=== PATIENT | male | born 1985 | race African-American/Black ===

== ENCOUNTER 2017-01-29 19:27 | Emergency (ER) | payer SELFPAY ==
[~2017-01-29] VITALS: Ht 198.1 cm; Wt 136.1 kg
[2017-01-29 19:29] VITALS: BP 174/100
[2017-01-29] MEDS ORDERED: AMOX500T PO (20:38)
[2017-01-29] MEDS ORDERED: FLUT9.9S NS (20:38)
--- NOTE | 2017-01-29 20:38 | PHYS DOC ---
Past Medical History Past Medical History: Hypertension Additional Past Medical Histor: uncontrolled for 7 months Past Surgical History: No Surgical History Smoking: Less than 1pk/day Alcohol Use: Occasionally Drug Use: Marijuana Adult General Chief Complaint Chief Complaint: EARACHE/EAR PAIN HPI HPI Patient is a 31 year old male who presents with right ear pain for one week. He is out of sore throat for 2 weeks with productive cough, mild shortness of breath, nasal congestion, and subjective fever. He had been treating the sore throat with [id number] medications until the ear pain began. He does not have a PCP. Review of Systems Review of Systems Constitutional: Reports subjective fever. Eyes: Denies change in visual acuity, redness, or eye pain. [] HENT: Reports right ear pain, sore throat, nasal congestion. Respiratory: Reports productive cough and mild shortness of breath. Cardiovascular: Denies chest pain, palpitations or edema. [] GI: Denies abdominal pain, nausea, vomiting, bloody stools or diarrhea. [] : Denies dysuria, hematuria or urinary frequency. [] Musculoskeletal: Denies back pain or joint pain. [] Integument: Denies rash or skin lesions. [] Neurologic: Denies headache, focal weakness or sensory changes. [] Endocrine: Denies polyuria or polydipsia. [] Psych: Denies anxiety or depression. [] All systems reviewed and negative unless otherwise stated in the HPI. Allergies Allergies Allergies Coded Allergies Type Severity Reaction Last Updated Verified No Known Drug Allergies 07/18/14 No Physical Exam Physical Exam Constitutional: Well developed, well nourished, no acute distress, non-toxic appearance. [] HENT: Normocephalic, atraumatic, bilateral external ears normal, oropharynx moist, no oral exudates, nose normal. Left TM without erythema or bulging. Right TM is erythematous and bulging without rupture of the TM. The ear canal does not have erythema or edema. There is mild posterior pharyngeal erythema with bilateral tonsillar edema and exudates. There is no peritonsillar abscess or uvular deviation. Bilateral nasal turbinates are significant is swollen and erythematous with purulent drainage. Eyes: PERRLA, EOMI, conjunctiva normal, no discharge. [] Neck: Normal range of motion, no tenderness, supple, no stridor. [] Cardiovascular: Heart rate regular rhythm, no murmur [] Lungs & Thorax: Bilateral breath sounds clear to auscultation without wheezes, rales, or rhonchi. Skin: Warm, dry, no erythema, no rash. [] Neurologic: Alert and oriented X 3, normal motor function, normal sensory function, no focal deficits noted. [] Psychologic: Affect normal, judgement normal, mood normal. [] Current Patient Data Vital Signs Vital Signs Date Time Temp Pulse Resp B/P Pulse Ox O2 Delivery O2 Flow Rate FiO2 01/29/17 19:29 98.5 80 18 98 Room Air 98.5 EKG EKG [] Radiology/Procedures Radiology/Procedures [] Course & Med Decision Making Course & Med Decision Making Pertinent Labs and Imaging studies reviewed. (See chart for details) [] Dragon Disclaimer Dragon Disclaimer This electronic medical record was generated, in whole or in part, using a voice recognition dictation system. Departure Departure Impression: Primary Impression: Otitis media Disposition: HOME, SELF-CARE Condition: STABLE Referrals: NO PCP (PCP) Patient Instructions: Otitis Media, Adult, [id number] Additional Instructions: Please complete all the prescribed antibiotics, even if you are feeling better. Please use the prescribed nasal spray on a daily basis to help decrease nasal drainage and congestion. This will also help to relieve pressure in your ear. Please follow-up with a primary care provider within the next week. Return to the emergency department if you have any new or concerning symptoms. Scripts Amoxicillin 500 Mg Tablet2 Tab PO BID #40 TAB Prov:JOSEY DISLA 01/29/17 Fluticasone Propionate (Flonase Allergy Relief)9.9 Ml [place].susp2 Sprays NS DAILY #1 BOTTLE Prov:JOSEY DISLA 01/29/17 Problem Qualifiers Primary Impression: Otitis media Otitis media type: suppurative Laterality: right Chronicity: acute Recurrence: not specified as recurrent Spontaneous tympanic membrane rupture: without spontaneous rupture Qualified Code: H66.001 - Acute suppurative otitis media without spontaneous rupture of ear drum, right ear JOSEY DISLA Jan 29, 2017 20:38
== END 2017-01-29 20:42 | disposition home or self-care (01) ==
LOC: ER 19:27
DX: H66.001 Acute suppurative otitis media without spontaneous rupture of ear drum, right ear (principal); I10 Essential (primary) hypertension; F12.10 Cannabis abuse, uncomplicated; F17.200 Nicotine dependence, unspecified, uncomplicated
CPT/HCPCS: 99283

== ENCOUNTER 2017-02-06 19:25 | Emergency (ER) | payer SELFPAY ==
[~2017-02-06 19:25] MED LIST: AMOX500T PO; FLUT9.9S NS
[2017-02-06 19:27] VITALS: BP 166/102
[2017-02-06] MEDS ORDERED: ATEN25TA PO (20:24)
[2017-02-06] MEDS ORDERED: MECL25TA3 PO (20:24)
--- NOTE | 2017-02-06 20:25 | PHYS DOC ---
Past Medical History Past Medical History: Hypertension Additional Past Medical Histor: uncontrolled for 7 months Past Surgical History: No Surgical History Smoking: Less than 1pk/day Alcohol Use: Occasionally Drug Use: Marijuana Adult General Chief Complaint Chief Complaint: EARACHE/EAR PAIN [facility] HPI Patient is a 31 year old male who presents with right ear congestion for one week. The patient was seen here on 01/29/17 and diagnosed with an ear infection. He was prescribed amoxicillin. He reports that he took the amoxicillin for approximately 3 days. He stopped taking the amoxicillin after an episode of vertigo. He got out of bed and felt very dizzy, described as a spinning sensation. He did have some drainage from the right ear as well as pain. He no longer has drainage or pain but feels like his ears are clogged. He continues to have vertigo when he lays down at night. He denies any fever, nasal congestion, sore throat, cough, nausea, or vomiting. He does not have a PCP. Upon arrival to the emergency department, his blood pressure is elevated. He states that he has been prescribed atenolol 50 mg daily in the past. He does not have a primary care provider to prescribe him this medication. Review of Systems Review of Systems Constitutional: Denies fever or chills. [] Eyes: Denies change in visual acuity, redness, or eye pain. [] HENT: Denies nasal congestion or sore throat. Reports right ear congestion and tinnitus. Respiratory: Denies cough or shortness of breath. [] Cardiovascular: Denies chest pain, palpitations or edema. [] GI: Denies abdominal pain, nausea, vomiting, bloody stools or diarrhea. [] : Denies dysuria, hematuria or urinary frequency. [] Musculoskeletal: Denies back pain or joint pain. [] Integument: Denies rash or skin lesions. [] Neurologic: Denies headache, focal weakness or sensory changes. Reports vertigo. Endocrine: Denies polyuria or polydipsia. [] Psych: Denies anxiety or depression. [] All systems reviewed and negative unless otherwise stated in the HPI. Allergies Allergies Allergies Coded Allergies Type Severity Reaction Last Updated Verified No Known Drug Allergies 07/18/14 No Physical Exam Physical Exam Constitutional: Well developed, well nourished, no acute distress, non-toxic appearance. [] HENT: Normocephalic, atraumatic, bilateral external ears normal, oropharynx moist, no oral exudates, nose normal. Bilateral TMs without erythema or bulging. There is fluid behind the right eardrum. There is no perforation of the eardrum, drainage in the ear canal, erythema or edema of the ear canal. There is no mastoid tenderness. There is no posterior pharyngeal erythema or tonsillar edema. Bilateral nasal turbinates are swollen and erythematous. Eyes: PERRLA, EOMI, conjunctiva normal, no discharge. [] Neck: Normal range of motion, no tenderness, supple, no stridor. [] Cardiovascular: Heart rate regular rhythm, no murmur [] Lungs & Thorax: Bilateral breath sounds clear to auscultation without wheezes, rales, or rhonchi. Skin: Warm, dry, no erythema, no rash. [] Neurologic: Alert and oriented X 3, normal motor function, normal sensory function, no focal deficits noted. [] Psychologic: Affect normal, judgement normal, mood normal. [] Current Patient Data Vital Signs Vital Signs Date Time Temp Pulse Resp B/P Pulse Ox O2 Delivery O2 Flow Rate FiO2 02/06/17 19:27 98.7 76 18 98 Room Air 98.7 EKG EKG [] Radiology/Procedures Radiology/Procedures [] Course & Med Decision Making Course & Med Decision Making Pertinent Labs and Imaging studies reviewed. (See chart for details) Patient presents with vertigo after recent otitis media, incompletely treated. On exam, there is no evidence of infection, however there is fluid behind the right TM without perforation. There are no neurologic deficits. The patient does not have any chest pain or shortness of breath. His blood pressure is uncontrolled, as he does not have a PCP to prescribe his blood pressure medication. He stopped taking the antibiotic prescribed for his ear infection. He states that he is still taking the nasal spray as prescribed on a daily basis. Patient is discharged home with prescription for Antivert and atenolol. He is instructed to continue to use the nasal spray as well. He is given contact information for primary care providers to establish care. Return precautions were discussed. He verbalizes understanding and agrees with plan. Dragon Disclaimer Dragon Disclaimer This electronic medical record was generated, in whole or in part, using a voice recognition dictation system. Departure Departure Impression: Primary Impression: Vertigo Disposition: 01 HOME, SELF-CARE Condition: STABLE Referrals: NO PCP (PCP) Patient Instructions: Vertigo, [id number] Additional Instructions: Your dizziness appears to be due to fluid in your ear as a result of your recent ear infection. Please continue to use the nose spray prescribed at your last visit. Please take Antivert at night before you go to bed to help with your dizziness. Please take the prescribed blood pressure medication daily. It is important to follow-up with a primary care provider for refill of your blood pressure medication and for monitoring of your blood pressure as well. Return to the emergency department if you have headache, weakness or numbness in part of her body, fever, or other new or concerning symptoms. Scripts Atenolol 25 Mg [id number] Mg PO DAILY #30 TAB Prov:JOSEY DISLA 02/06/17 Meclizine Hcl 25 Mg [id number] Mg PO BID PRN DIZZINESS #20 TAB Prov:JOSEY DISLA 02/06/17 JOSEY DISLA Feb 06, 2017 20:25
== END 2017-02-06 20:31 | disposition home or self-care (01) ==
LOC: ER 19:25
DX: R42 Dizziness and giddiness (principal); I10 Essential (primary) hypertension; F17.200 Nicotine dependence, unspecified, uncomplicated; F12.10 Cannabis abuse, uncomplicated
CPT/HCPCS: 99283

== ENCOUNTER 2017-09-06 09:09 | Emergency (ER) | payer SELFPAY ==
[~2017-09-06] VITALS: Ht 198.1 cm; Wt 129.3 kg
[~2017-09-06 09:09] MED LIST changes: +ATEN25TA PO; +MECL25TA3 PO
--- NOTE | 2017-09-06 09:29 | PHYS DOC ---
Past Medical History Past Medical History: Hypertension Additional Past Medical Histor: uncontrolled for 7 months Past Surgical History: No Surgical History Alcohol Use: Occasionally Drug Use: Marijuana Adult General Chief Complaint Chief Complaint: OTHER COMPLAINTS HPI HPI Patient is a 32 year old medical presents with a request to refill his blood pressure medicine. Patient states he ran out of the medication 1 month ago. Patient does not know the medicines he was taking. Patient also states he has had chest tightness for 3 weeks. Denies any chest pain. Denies any fever cough or shortness of breath. PCP none Review of Systems Review of Systems Constitutional: Denies fever or chills [] Eyes: Denies change in visual acuity, redness, or eye pain [] HENT: Denies nasal congestion or sore throat [] Respiratory: Denies cough or shortness of breath [] Cardiovascular: BP medicines refill. chest tightness GI: Denies abdominal pain, nausea, vomiting, bloody stools or diarrhea [] : Denies dysuria or hematuria [] Musculoskeletal: Denies back pain or joint pain [] Integument: Denies rash or skin lesions [] Neurologic: Denies headache, focal weakness or sensory changes [] Current Medications Current Medications Current Medications Medications (Trade) Dose Ordered Sig/Zhao Start Time Stop Time Status Last Admin Dose Admin Amlodipine Besylate (Norvasc) 5 mg 1X ONCE 09/06/17 09:30 09/06/17 09:31 DC 09/06/17 09:50 5 MG Aspirin (Sylvester Aspirin) 325 mg 1X ONCE 09/06/17 09:30 09/06/17 09:31 DC 09/06/17 09:48 325 MG Allergies Allergies Allergies Coded Allergies Type Severity Reaction Last Updated Verified No Known Drug Allergies 07/18/14 No Physical Exam Physical Exam Constitutional: Well developed, well nourished, no acute distress, non-toxic appearance. [] HENT: Normocephalic, atraumatic, bilateral external ears normal, oropharynx moist, no oral exudates, nose normal. [] Eyes: PERRLA, EOMI, conjunctiva normal, no discharge. [] Neck: Normal range of motion, no tenderness, supple, no stridor. [] Cardiovascular:Heart rate regular rhythm, no murmur [] Lungs & Thorax: Bilateral breath sounds clear to auscultation [] Abdomen: Bowel sounds normal, soft, no tenderness, no masses, no pulsatile masses. [] Skin: Warm, dry, no erythema, no rash. [] Back: No tenderness, no CVA tenderness. [] Extremities: No tenderness, no cyanosis, no clubbing, ROM intact, no edema. [] Neurologic: Alert and oriented X 3, normal motor function, normal sensory function, no focal deficits noted. [] Psychologic: Affect normal, judgement normal, mood normal. [] Current Patient Data Vital Signs Vital Signs Date Time Temp Pulse Resp B/P (MAP) Pulse Ox O2 Delivery O2 Flow Rate FiO2 09/06/17 09:50 78 172/87 09/06/17 09:16 98.4 22 100 Room Air 98.4 Lab Values Laboratory Tests Test 09/06/17 09:37 09/06/17 10:18 White Blood Count 8.1 x10^3/uL (4.0-11.0) Red Blood Count 4.83 x10^6/uL (4.30-5.70) Hemoglobin 12.9 g/dL (13.0-17.5) L Hematocrit 39.1 % (39.0-53.0) Mean Corpuscular Volume 81 fL (79-100) Mean Corpuscular Hemoglobin 27 pg (25-35) Mean Corpuscular Hemoglobin Concent 33 g/dL (31-37) Red Cell Distribution Width 14.4 % (11.5-14.5) Platelet Count 196 x10^3/uL (140-400) Neutrophils (%) (Auto) 77 % (31-73) H Lymphocytes (%) (Auto) 14 % (24-48) L Monocytes (%) (Auto) 7 % (0-9) Eosinophils (%) (Auto) 2 % (0-3) Basophils (%) (Auto) 1 % (0-3) Neutrophils # (Auto) 6.2 x10^3uL (1.8-7.7) Lymphocytes # (Auto) 1.1 x10^3/uL (1.0-4.8) Monocytes # (Auto) 0.6 x10^3/uL (0.0-1.1) Eosinophils # (Auto) 0.2 x10^3/uL (0.0-0.7) Basophils # (Auto) 0.0 x10^3/uL (0.0-0.2) Sodium Level 139 mmol/L (136-145) Potassium Level 4.5 mmol/L (3.5-5.1) Chloride Level 103 mmol/L (98-107) Carbon Dioxide Level 30 mmol/L (21-32) Anion Gap 6 (6-14) Blood Urea Nitrogen 18 mg/dL (8-26) Creatinine 0.9 mg/dL (0.7-1.3) Estimated GFR (Cockcroft-Gault) 117.6 Glucose Level 102 mg/dL (70-99) H Calcium Level 9.0 mg/dL (8.5-10.1) Creatine Kinase 499 U/L (39-308) H Creatine Kinase MB (Mass) 3.6 ng/mL (0.0-3.6) Creatine Kinase MB Relative Index 0.7 % (0-4) Troponin I Quantitative < 0.017 ng/mL (0.000-0.055) Thyroid Stimulating Hormone (TSH) 1.408 uIU/mL (0.358-3.74) Urine Collection Type Unknown Urine Color Yellow Urine Clarity Clear Urine pH 7.5 Urine Specific [place] 1.015 Urine Protein Negative mg/dL (NEG-TRACE) Urine Glucose (UA) Negative mg/dL (NEG) Urine Ketones (Stick) Negative mg/dL (NEG) Urine Blood Negative (NEG) Urine Nitrite Negative (NEG) Urine Bilirubin Negative (NEG) Urine Urobilinogen Dipstick 1.0 mg/dL (0.2 mg/dL) Urine Leukocyte Esterase Negative (NEG) Urine RBC 0 /HPF (0-2) Urine WBC 0 /HPF (0-4) Urine Squamous Epithelial Cells Occ /LPF Urine Bacteria 0 /HPF (0-FEW) Urine Opiates Screen Neg (NEG) Urine Methadone Screen Neg (NEG) Urine Barbiturates Neg (NEG) Urine Phencyclidine Screen Neg (NEG) Urine Amphetamine/Methamphetamine Neg (NEG) Urine Benzodiazepines Screen Neg (NEG) Urine Cocaine Screen Neg (NEG) Urine Cannabinoids Screen Neg (NEG) Urine Ethyl Alcohol Neg (NEG) Laboratory Tests 09/06/17 09:37 Laboratory Tests 09/06/17 09:37 EKG EKG Interpreted by Dr. Rowell sinus rhythm, inverted T wave on lead III no STEMI EKG unchanged from 06/2014 Radiology/Procedures Radiology/Procedures []PROCEDURE: CHEST AP ONLY Indication chest heaviness. A single view of the chest was obtained and is compared to an examination 07/18/2014. Heart size is at the upper limits of normal. There is no gross congestive heart failure. No consolidated pneumonia is seen. There is no pleural fluid or pneumothorax. There has not been a significant change compared to the previous exam. IMPRESSION: No acute finding in the chest. No significant change DICTATED and SIGNED BY: JOEY SANDOVAL MD DATE: 09/06/17 0954 CC: ELODIA ESCALONA APRN; NO PCP ~ Course & Med Decision Making Course & Med Decision Making Pertinent Labs and Imaging studies reviewed. (See chart for details) This is a 22-year-old male patient presenting today with a request for refill of his blood pressure medicines and with chest tightness. He does not know what he used to take. The last time he took his BP medicines as 1 month ago. BP on arrival was 172/87 with a heart rate of 77. He was started on Norvasc. CBC BMP with no acute findings, CK-MB and troponin with no acute findings. EKG with nothing acute. Emphasized to patient on the importance of compliance with his blood pressure medicine. Discharged Norvasc. Provided a doctor's list for follow -up including cardiology f/u. Provided return precautions and discharged in stable condition. Dragon Disclaimer Dragon Disclaimer This electronic medical record was generated, in whole or in part, using a voice recognition dictation system. Departure Departure Impression: Primary Impression: HTN (hypertension), malignant Additional Impression: Medication refill Disposition: HOME, SELF-CARE Condition: STABLE Referrals: NO PCP (PCP) DIANA EPPS MD you need to follow up with the food adviser provided in 1-2 weeks DANIAL MACKAY MD follow up with the eye doctor as needed Patient Instructions: Hypertension Additional Instructions: Your blood pressure was high in the emergency room. You need to take your blood pressure medicines as prescribed. You need to follow-up with a primary care doctor from the list provided. Come back to the ED at any point symptoms worsen. Scripts Amlodipine Besylate (NORVASC) 5 Mg Tablet 1 TAB PO DAILY, #90 TAB 0 Refills Prov: ELODIA ESCALONA APRN 09/06/17 Problem Qualifiers ELODIA ESCALONA APRN Sep 06, 2017 09:29
--- NOTE | 2017-09-06 09:29 | EKG ---
[facility] [address] [place] [address] Test Date: 2017-09-06 Test Time: 09:20:51 Pat Name: SULTANA COOK Department: Room: Gender: M Bag Shaker: : 1985 Requested By: ELODIA ESCALONA Order Number: [id number] Reading MD: Measurements Intervals [place] Rate: 78 P: -24 MA: 166 QRS: 13 QRSD: 94 T: 8 QT: 370 QTc: 425 Interpretive Statements SINUS RHYTHM QRS(T) CONTOUR ABNORMALITY CONSIDER ANTEROSEPTAL MYOCARDIAL DAMAGE RI6.01 Unconfirmed report No previous ECG available for comparison
[2017-09-06] MEDS ORDERED: ASPIRIN 325 MG TABLET PO ONE (09:30)
[2017-09-06] MEDS ORDERED: amLODIPine BESYLATE 5 MG TABLET PO ONE (09:30)
[2017-09-06 09:46] LABS: BASO % 1 % (0-3); EOS % 2 % (0-3); HEMATOCRIT 39.1 % (39.0-53.0); HEMOGLOBIN 12.9 g/dL (13.0-17.5); LYMPH # 1.1 x10^3/uL (1.0-4.8); LYMPH % 14 % (24-48); MEAN CORPUSCULAR HEMOGLOBIN 27 pg (25-35); MEAN CORPUSCULAR HGB CONC 33 g/dL (31-37); MEAN CORPUSCULAR VOLUME 81 fL (79-100); MONO % 7 % (0-9); NEUT % 77 % (31-73); PLATELET COUNT 196 x10^3/uL (140-400); RED BLOOD COUNT 4.83 x10^6/uL (4.30-5.70); RED CELL DISTRIBUTION WIDTH 14.4 % (11.5-14.5); WHITE BLOOD COUNT 8.1 x10^3/uL (4.0-11.0)
[2017-09-06 10:01] LABS: CREATININE 0.9 mg/dL (0.7-1.3); GFR 117.6; POTASSIUM 4.5 mmol/L (3.5-5.1)
--- NOTE | 2017-09-06 10:01 | RAD ---
Indication chest heaviness. A single view of the chest was obtained and is compared to an examination 07/18/2014. Heart size is at the upper limits of normal. There is no gross congestive heart failure. No consolidated pneumonia is seen. There is no pleural fluid or pneumothorax. There has not been a significant change compared to the previous exam. IMPRESSION: No acute finding in the chest. No significant change
[2017-09-06 10:15] LABS: CKMB MASS 3.6 ng/mL (0.0-3.6)
[2017-09-06 10:43] LABS: BILIRUBIN,URINE NEGATIVE (NEG); GLUCOSE,URINE NEGATIVE (NEG); NITRITE,URINE NEGATIVE (NEG); PH,URINE 7.5; PROTEIN,URINE NEGATIVE (NEG-TRACE)
[2017-09-06 10:49] LABS: BARBITURATES NEG (NEG); BENZODIAZEPINES NEG (NEG); CANNABINOIDS NEG (NEG); COCAINE NEG (NEG); METHADONE NEG (NEG); OPIATES NEG (NEG); PHENCYCLIDINE NEG (NEG)
[2017-09-06 10:52] LABS: SQUAMOUS EPITHELIAL CELL,UR OCC /LPF
[2017-09-06 10:53] LABS: BACTERIA,URINE 0 /HPF (0-FEW); RBC,URINE 0 /HPF (0-2); WBC,URINE 0 /HPF (0-4)
[2017-09-06] MEDS ORDERED: AMLO5TAB4 PO (11:02)
[2017-09-06 11:10] VITALS: BP 156/96
== END 2017-09-06 11:08 | disposition home or self-care (01) ==
LOC: ER 09:09
DX: Z76.0 Encounter for issue of repeat prescription (principal); I10 Essential (primary) hypertension
CPT/HCPCS: 36415; 71010; 80048; 80307; 81001; 82553; 84443; 84484; 85025; 93005; 99285-25; G0479

== ENCOUNTER 2019-09-09 12:18 | Emergency (ER) | payer BC ==
[~2019-09-09] VITALS: Ht 200.7 cm; Wt 133.8 kg
[~2019-09-09 12:18] MED LIST changes: +AMLO10TA8 PO; +AMLO5TAB4 PO; +DICL50TA4 PO
[2019-09-09] MEDS ORDERED: KETOROLAC 15 MG/ML VIAL. IV STA (12:46)
[2019-09-09] MEDS ORDERED: HYDR-3164 PO (12:53)
--- NOTE | 2019-09-09 12:54 | PHYS DOC ---
Past Medical History Past Medical History: Hypertension, Sciatica Additional Past Medical Histor: uncontrolled for 7 months Past Surgical History: No Surgical History Alcohol Use: Occasionally Drug Use: Marijuana Adult General Chief Complaint Chief Complaint: LOWER EXT PAIN HPI HPI Patient is a 34 year old male that presents to emergency Department for left leg pain and back pain that started this morning. The patient states he still with this couple years ago as well as didn't MRI found was a disc problem. The patient rates his pain as 8 out of 10 in severity and sharp. The patient states he took Flexeril at 8 AM. Review of Systems Review of Systems Constitutional: Denies fever or chills [] Eyes: Denies change in visual acuity, redness, or eye pain [] HENT: Denies nasal congestion or sore throat [] Respiratory: Denies cough or shortness of breath [] Cardiovascular: No additional information not addressed in HPI [] GI: Denies abdominal pain, nausea, vomiting, bloody stools or diarrhea [] : Denies dysuria or hematuria [] Musculoskeletal: Reports back pain that radiates down the left leg. Integument: Denies rash or skin lesions [] Neurologic: Denies headache, focal weakness or sensory changes [] Endocrine: Denies polyuria or polydipsia [] Complete systems were reviewed and found to be within normal limits, except as documented in this note. Current Medications Current Medications Current Medications Medications (Trade) Dose Ordered Sig/Zhao Start Time Stop Time Status Last Admin Dose Admin Ketorolac Tromethamine (Toradol 15mg Vial) 10 mg 1X STAT 09/09/19 12:46 09/09/19 12:48 DC Morphine Sulfate (Morphine Sulfate) 4 mg 1X ONCE 09/09/19 13:00 09/09/19 13:01 Allergies Allergies Allergies Coded Allergies Type Severity Reaction Last Updated Verified No Known Drug Allergies 07/18/14 No Physical Exam Physical Exam Constitutional: Well developed, well nourished, no acute distress, non-toxic appearance. [] HENT: Normocephalic, atraumatic, bilateral external ears normal, oropharynx moist, no oral exudates, nose normal. [] Eyes: PERRLA, EOMI, conjunctiva normal, no discharge. [] Neck: Normal range of motion, no tenderness, supple, no stridor. [] Cardiovascular:Heart rate regular rhythm, no murmur [] Lungs & Thorax: Bilateral breath sounds clear to auscultation [] Abdomen: Bowel sounds normal, soft, no tenderness, no masses, no pulsatile masses. [] Skin: Warm, dry, no erythema, no rash. [] Back: Left sided back tenderness. Extremities: No tenderness, no cyanosis, no clubbing, ROM intact, no edema. [] Neurologic: Alert and oriented X 3, normal motor function, normal sensory function, no focal deficits noted. [] Psychologic: Affect normal, judgement normal, mood normal. [] Current Patient Data Vital Signs Vital Signs Date Time Temp Pulse Resp B/P (MAP) Pulse Ox O2 Delivery O2 Flow Rate FiO2 09/09/19 12:18 98.5 70 16 169/103 (125) 100 Room Air 98.5 EKG EKG [] Radiology/Procedures Radiology/Procedures [] Course & Med Decision Making Course & Med Decision Making Pertinent Labs and Imaging studies reviewed. (See chart for details) Appears to be having sciatic back pain. Has no KTRACs history. Will give 3 days of [place] and will give Morphine and Toradol in the ER. Dragon Disclaimer Dragon Disclaimer This electronic medical record was generated, in whole or in part, using a voice recognition dictation system. Departure Departure Impression: Primary Impression: Sciatic leg pain Disposition: HOME, SELF-CARE Condition: STABLE Referrals: NO PCP (PCP) Patient Instructions: Sciatica Additional Instructions: Thank you for visiting [facility]. We appreciate you trusting us with your care. If any additional problems come up don't hesitate to return to visit us. Please follow up with your primary care provider so they can plan additional care if needed and know about the problem that you had. If symptoms worsen come back to the Emergency Department. Any concerning symptoms that start such as chest pain, shortness of air, weakness or numbness on one side of the body, running high fevers or any other concerning symptoms return to the ER. Please fill your medications at any pharmacy and follow the prescription instructions. Scripts Hydrocodone/Apap 5-325 (NORCO 5-325 TABLET) 1 Each Tablet 1 TAB PO PRN Q6HRS PRN for PAIN for 3 Days, #10 TAB 0 Refills Prov: SUKHI CHAN APRN 09/09/19 SUKHI CHAN APRN Sep 09, 2019 12:54
[2019-09-09] MEDS ORDERED: MORPHINE SULFATE 4 MG/ML VIAL. IV ONE (13:00)
[2019-09-09 13:15] VITALS: BP 171/102
== END 2019-09-09 13:17 | disposition home or self-care (01) ==
LOC: ER 12:18
DX: M54.32 Sciatica, left side (principal); I10 Essential (primary) hypertension
CPT/HCPCS: 96374; 96375; 99284; J1885; J2270

== ENCOUNTER 2020-01-20 19:35 | Emergency (ER) | payer BC ==
[~2020-01-20] VITALS: Ht 198.1 cm; Wt 132.0 kg
[~2020-01-20 19:35] MED LIST changes: +HYDR-3164 PO; +MECL-75 PO; -MECL25TA3 PO
[2020-01-20 20:08] VITALS: BP 172/97
[2020-01-20] MEDS ORDERED: GUAI600T47 PO (20:23)
--- NOTE | 2020-01-20 20:23 | PHYS DOC ---
Past Medical History Past Medical History: Hypertension, Sciatica Additional Past Medical Histor: uncontrolled for 7 months Past Surgical History: No Surgical History Smoking Status: Current Every Day Smoker Additional Information: CURRENT SOME DAY SMOKER Alcohol Use: Occasionally Drug Use: Marijuana Adult General Chief Complaint Chief Complaint: COUGH HPI HPI Patient is a 34 year old male patient who presents with cough. Patient reports he has had a cough, body aches, discomfort for the last week. States he had been on a bus for a while, and thinks somebody may have gotten him sick. States no nausea, no vomiting. States he hasn't taken some ibuprofen which has helped his discomfort a little bit. States he just feels a he has a cough that continues. Denies shortness of breath. Review of Systems Review of Systems Constitutional: Denies fever or chills [] Eyes: Denies change in visual acuity, redness, or eye pain [] HENT: Denies nasal congestion or sore throat [] Respiratory: Reports cough, denies shortness of breath[] Cardiovascular: No additional information not addressed in HPI [] GI: Denies abdominal pain, nausea, vomiting, bloody stools or diarrhea [] : Denies dysuria or hematuria [] Musculoskeletal: Denies back pain or joint pain [] Integument: Denies rash or skin lesions [] Neurologic: Denies headache, focal weakness or sensory changes [] Endocrine: Denies polyuria or polydipsia [] All other systems were reviewed and found to be within normal limits, except as documented in this note. Allergies Allergies Allergies Coded Allergies Type Severity Reaction Last Updated Verified No Known Drug Allergies 07/18/14 No Physical Exam Physical Exam Constitutional: Well developed, well nourished, no acute distress, non-toxic appearance. [] HENT: Normocephalic, atraumatic, bilateral external ears normal, oropharynx moist, no oral exudates, nose normal. [] Eyes: PERRLA, EOMI, conjunctiva normal, no discharge. [] Neck: Normal range of motion, no tenderness, supple, no stridor. [] Cardiovascular:Heart rate regular rhythm, no murmur [] Lungs & Thorax: Bilateral breath sounds clear to auscultation [] Abdomen: Bowel sounds normal, soft, no tenderness, no masses, no pulsatile masses. [] Skin: Warm, dry, no erythema, no rash. [] Back: No tenderness, no CVA tenderness. [] Extremities: No tenderness, no cyanosis, no clubbing, ROM intact, no edema. [] Neurologic: Alert and oriented X 3, normal motor function, normal sensory function, no focal deficits noted. [] Psychologic: Affect normal, judgement normal, mood normal. [] Current Patient Data Vital Signs Vital Signs Date Time Temp Pulse Resp B/P (MAP) Pulse Ox O2 Delivery O2 Flow Rate FiO2 01/20/20 20:08 99.0 76 18 172/97 (122) 99 Room Air 99.0 EKG EKG [] Radiology/Procedures Radiology/Procedures [] Course & Med Decision Making Course & Med Decision Making Pertinent Labs and Imaging studies reviewed. (See chart for details) [Discussed findings with patient, with patient out of any testing or treatment for influenza. Discussed options for mucolytics versus cough suppressant. Marcelae nt reports he would prefer to have a mucolytic, as he is feels that he is able to cough and mucus out he would feel much better. We'll provide patient a prescription for guaifenesin. Dragon Disclaimer Dragon Disclaimer This electronic medical record was generated, in whole or in part, using a voice recognition dictation system. Departure Departure Impression: Primary Impression: Cough Disposition: 01 HOME, SELF-CARE Condition: STABLE Referrals: NO PCP (PCP) Patient Instructions: Cough, Adult Additional Instructions: As we discussed, continue to drink plenty of fluids when you are taking the Mucinex. Rest. Follow-up with your primary care provider as needed. Scripts Guaifenesin (MUCINEX) 600 Mg Tablet.er 600 MG PO Q12HR, #10 TAB.SR Prov: JAVID ROSE APRN 01/20/20 JAVID ROSE APRN Jan 20, 2020 20:23
== END 2020-01-20 20:35 | disposition home or self-care (01) ==
LOC: ER 19:35
DX: R05 Cough (principal); I10 Essential (primary) hypertension; F17.200 Nicotine dependence, unspecified, uncomplicated; F12.90 Cannabis use, unspecified, uncomplicated
CPT/HCPCS: 99282

== ENCOUNTER 2020-05-22 16:52 | Emergency (ER) | payer BC ==
[~2020-05-22] VITALS: Ht 200.7 cm; Wt 131.2 kg
[~2020-05-22 16:52] MED LIST changes: +GUAI600T47 PO
[2020-05-22 16:59] VITALS: BP 195/97
[2020-05-22 17:26] LABS: BILIRUBIN,URINE NEGATIVE (NEG); CLARITY,URINE CLOUDY; COLOR,URINE YELLOW; NITRITE,URINE NEGATIVE (NEG); PH,URINE 7.5 (<5.0-8.0); PROTEIN,URINE NEGATIVE (NEG-TRACE); UROBILINOGEN,URINE 0.2 mg/dL (0.2 mg/dL)
[2020-05-22 17:33] LABS: BACTERIA,URINE FEW /HPF (0-FEW); RBC,URINE OCC /HPF (0-2); SQUAMOUS EPITHELIAL CELL,UR OCC /LPF; WBC,URINE TNTC /HPF (0-4)
--- NOTE | 2020-05-22 17:55 | PHYS DOC ---
Past Medical History Past Medical History: Hypertension, Sciatica, Other Additional Past Medical Histor: uncontrolled for 7 months Past Surgical History: No Surgical History Smoking Status: Current Every Day Smoker Additional Information: 0.25 PPD Alcohol Use: Occasionally Drug Use: Marijuana General Adult EDM: Chief Complaint: SEXUALLY TRANSMITTED DISEASE HPI: HPI: Patient is a 35 year old AA male who presents to the ER with complaints of burning with urination for the last 3 days. He denies any abnormal penile d ischarge or blood in his urine. Patient denies any fever, testicular pain, nausea, vomiting, or diarrhea. Patient currently denies any pain he states the pain is only with urination. Review of Systems: Review of Systems: Constitutional: Denies fever or chills. [] GI: Denies abdominal pain, nausea, vomiting, or diarrhea. [] : See HPI Musculoskeletal: Denies back pain Psychiatric: Denies depression or anxiety. [] Heart Score: Risk Factors: Risk Factors: DM, Current or recent (<one month) smoker, HTN, HLP, family history of CAD, obesity. Risk Scores: Score 0 - 3: 2.5% MACE over next 6 weeks - Discharge Home Score 4 - 6: 20.3% MACE over next 6 weeks - Admit for Clinical Observation Score 7 - 10: 72.7% MACE over next 6 weeks - Early Invasive Strategies Allergies: Allergies: Allergies Coded Allergies Type Severity Reaction Last Updated Verified No Known Drug Allergies 07/18/14 No Physical Exam: PE: Constitutional: Well developed, well nourished, no acute distress, non-toxic appearance. [] HENT: Normocephalic, atraumatic, bilateral external ears normal, nose normal. [] Eyes: PERRLA, EOMI, conjunctiva normal, no discharge. [] Neck: Normal range of motion, no stridor. [] Cardiovascular:Heart rate regular rhythm Lungs & Thorax: Respirations even and unlabored, no retractions, no respiratory distress Skin: Warm, dry, no erythema, no rash. [] Extremities: No cyanosis, ROM intact, no edema. [] Neurologic: Alert and oriented X 3, no focal deficits noted. [] Psychologic: Affect normal, judgement normal, mood normal. [] Current Patient Data: Labs: Laboratory Tests Test 05/22/20 17:10 Urine Collection Type Unknown Urine Color Yellow Urine Clarity Cloudy Urine pH 7.5 (<5.0-8.0) Urine Specific Irving 1.025 (1.000-1.030) Urine Protein Negative mg/dL (NEG-TRACE) Urine Glucose (UA) Negative mg/dL (NEG) Urine Ketones (Stick) Negative mg/dL (NEG) Urine Blood Negative (NEG) Urine Nitrite Negative (NEG) Urine Bilirubin Negative (NEG) Urine Urobilinogen Dipstick 0.2 mg/dL (0.2 mg/dL) Urine Leukocyte Esterase Large (NEG) Urine RBC Occ /HPF (0-2) Urine WBC Tntc /HPF (0-4) Urine Squamous Epithelial Cells Occ /LPF Urine Bacteria Few /HPF (0-FEW) Urine Mucus Slight /LPF Vital Signs: Vital Signs Date Time Temp Pulse Resp B/P (MAP) Pulse Ox O2 Delivery O2 Flow Rate FiO2 05/22/20 16:59 99.1 85 17 195/97 (129) 97 Room Air 99.1 EKG: EKG: [] Radiology/Procedures: Radiology/Procedures: [] Course & Med Decision Making: Course & Med Decision Making Pertinent Labs and Imaging studies reviewed. (See chart for details) [] Dragon Disclaimer: [employer] Disclaimer: This electronic medical record was generated, in whole or in part, using a voice recognition dictation system. Departure Departure Impression: Primary Impression: Dysuria Additional Impression: Contact with and (suspected) exposure to infections with a predominantly sexual mode of transmission Disposition: HOME, SELF-CARE Condition: STABLE Referrals: NO PCP (PCP) Patient Instructions: Dysuria, Sexually Transmitted Disease, Cihx-[id number] Additional Instructions: Recommend that you go to your local health department for comprehensive sexually transmitted disease testing. You have been treated for a suspected gonorrhea and chlamydia. Avoid having intercourse until the results of gonorrhea and chlamydia testing are available, these results will not be available for 48 hours. If one or both of these tests is positive, you need to refrain from intercourse for approximately 1 week following the treatment of any current partners. Follow-up with your primary care doctor if symptoms persist, return to ER symptoms worsen. Justicifation of Admission Dx: Justifications for Admission: Justification of Admission Dx: N/A LIA HERNANDEZ OCCUPATIONAL HEALTH TECHNICIAN May 22, 2020 17:55
[2020-05-22] MEDS ORDERED: AZITHROMYCIN 250 MG TABLET. PO ONE (18:00)
[2020-05-22] MEDS ORDERED: cefTRIAXone IM 250 MG VIAL IM ONE (18:00)
== END 2020-05-22 18:30 | disposition home or self-care (01) ==
LOC: ER 16:52
DX: R30.0 Dysuria (principal); Z20.2 Contact with and (suspected) exposure to infections with a predominantly sexual mode of transmission; I10 Essential (primary) hypertension; F17.200 Nicotine dependence, unspecified, uncomplicated; F12.90 Cannabis use, unspecified, uncomplicated
CPT/HCPCS: 81001; 87086; 87491; 87591; 96372; 99283; J0696

== ENCOUNTER 2020-09-20 20:32 | Emergency (ER) | payer SELFPAY ==
[~2020-09-20] VITALS: Ht 198.1 cm; Wt 130.0 kg
[~2020-09-20 20:32] MED LIST changes: +AMLO-187 PO; -AMLO10TA8 PO
[2020-09-20 21:50] VITALS: BP 153/81
[2020-09-20] MEDS ORDERED: ATEN25TA PO (22:06)
[2020-09-20] MEDS ORDERED: AMLO5TAB4 PO (22:06)
--- NOTE | 2020-09-20 22:07 | PHYS DOC ---
Past Medical History Past Medical History: Hypertension, Sciatica, Other Additional Past Medical Histor: uncontrolled for 7 months Past Surgical History: No Surgical History Smoking Status: Current Every Day Smoker Alcohol Use: Occasionally Drug Use: Marijuana General Adult EDM: Chief Complaint: HYPERTENSION HPI: HPI: Patient is a 35 year old male who presented to ER due to elevated blood pressure. Patient has history hypertension, he is on amlodipine 5 mg daily, atenolol 25 mg daily. Patient said he ran out of his medication 3 weeks ago. Patient had intermittent headache, he checked his blood pressure today and it is high so he came in for evaluation. Patient denies any chest pain, no abdominal pain, no nausea or vomiting. Patient denies any weakness or numbness anywhere Review of Systems: Review of Systems: Constitutional: Denies fever or chills. [] Eyes: Denies change in visual acuity. [] HENT: Denies nasal congestion or sore throat. [] Respiratory: Denies cough or shortness of breath. [] Cardiovascular: Denies chest pain or edema. [] GI: Denies abdominal pain, nausea, vomiting, bloody stools or diarrhea. [] : Denies dysuria. [] Musculoskeletal: Denies back pain or joint pain. [] Integument: Denies rash. [] Neurologic: Denies headache, focal weakness or sensory changes. [] Endocrine: Denies polyuria or polydipsia. [] Lymphatic: Denies swollen glands. [] Psychiatric: Denies depression or anxiety. [] Heart Score: Risk Factors: Risk Factors: DM, Current or recent (<one month) smoker, HTN, HLP, family history of CAD, obesity. Risk Scores: Score 0 - 3: 2.5% MACE over next 6 weeks - Discharge Home Score 4 - 6: 20.3% MACE over next 6 weeks - Admit for Clinical Observation Score 7 - 10: 72.7% MACE over next 6 weeks - Early Invasive Strategies Allergies: Allergies: Allergies Coded Allergies Type Severity Reaction Last Updated Verified No Known Drug Allergies 07/18/14 No Physical Exam: PE: Constitutional: Well developed, well nourished, no acute distress, non-toxic appearance. [] HENT: Normocephalic, atraumatic, bilateral external ears normal, oropharynx moist, no oral exudates, nose normal. [] Eyes: PERRLA, EOMI, conjunctiva normal, no discharge. [] Neck: Normal range of motion, no tenderness, supple, no stridor. [] Cardiovascular:Heart rate regular rhythm, no murmur [] Lungs & Thorax: Bilateral breath sounds clear to auscultation [] Abdomen: Bowel sounds normal, soft, no tenderness, no masses, no pulsatile masses. [] Skin: Warm, dry, no erythema, no rash. [] Back: No tenderness, no CVA tenderness. [] Extremities: No tenderness, no cyanosis, no clubbing, ROM intact, no edema. [] Neurologic: Alert and oriented X 3, normal motor function, normal sensory function, no focal deficits noted. [] Psychologic: Affect normal, judgement normal, mood normal. [] Current Patient Data: Vital Signs: Vital Signs Date Time Temp Pulse Resp B/P (MAP) Pulse Ox O2 Delivery O2 Flow Rate FiO2 09/20/20 20:48 98.3 80 16 182/102 (128) 99 Room Air 98.3 EKG: EKG: [] Radiology/Procedures: Radiology/Procedures: [] Course & Med Decision Making: Course & Med Decision Making Pertinent Labs and Imaging studies reviewed. (See chart for details) Patient is a 35-year-old male who presented to ER for evaluation of hypertension and medication refill. Patient was given atenolol and Flovent prescription. His blood pressure was rechecked in the ER and it was 156/80 without any treatment. Patient had no headache or chest pain or any neurological deficits in the ER. Patient was discharged home, he was advised that need to follow-up with his family physician. Noa Disclaimer: Noa Disclaimer: This electronic medical record was generated, in whole or in part, using a voice recognition dictation system. Departure Departure Impression: Primary Impression: Hypertension Additional Impression: Medication refill Disposition: 01 DC HOME SELF CARE/HOMELESS Condition: STABLE Referrals: NO PCP (PCP) FOLLOW UP WITH YOUR DOCTOR THIS WEEK Patient Instructions: Hypertension, Medication Refill, Emergency Department Scripts Atenolol (ATENOLOL) 25 Mg Tablet 1 TAB PO DAILY, #90 TAB 0 Refills Prov: ALEXA DE LA TORRE DO 09/20/20 Amlodipine Besylate (NORVASC) 5 Mg Tablet 1 TAB PO DAILY, #90 TAB 0 Refills Prov: ALEXA DE LA TORRE DO 09/20/20 ALEXA DE LA TORRE DO Sep 20, 2020 22:07
== END 2020-09-20 22:14 | disposition home or self-care (01) ==
LOC: ER 20:32
DX: I10 Essential (primary) hypertension (principal); F17.200 Nicotine dependence, unspecified, uncomplicated; F12.90 Cannabis use, unspecified, uncomplicated; Z76.0 Encounter for issue of repeat prescription
CPT/HCPCS: 99281